=== PATIENT | female | born 1985 | race Two or more races ===

== ENCOUNTER 2024-10-30 06:40 | Inpatient (IN) | payer OTHER ==
[2024-10-30 07:48] VITALS: RESP 18; BMI 30.4
[2024-10-30] MEDS ORDERED: morphine SULFATE/PF 1 MG/2 ML (2cc Syringe - QUVA) ONE (07:53)
[2024-10-30] MEDS ORDERED: FENTANYL CITRATE/PF 50 MCG/ML VIAL ONE (07:54)
[2024-10-30] MEDS ORDERED: MIDAZOLAM HCL 2 MG/2 ML SINGLE DOSE VIAL ONE (09:14)
[2024-10-30] MEDS ORDERED: ONDANSETRON 4 MG/2 ML VIAL IVPB PRN (09:55)
[2024-10-30] MEDS: OXYTOCIN 20 UNITS in 0.9% NS 20 UNIT/1,000 ML INFUS.BAG IV SCH (10:00)
[2024-10-30] MEDS ORDERED: OXYTOCIN 20 UNITS in 0.9% NS 20 UNIT/1,000 ML INFUS.BAG IV ONE (10:01)
[2024-10-30] MEDS ORDERED: ACETAMINOPHEN INJECTION 100 ML ONE (10:52)
[2024-10-30] MEDS: ACETAMINOPHEN 1000 MG/100 ML BAG IVPB SCH (10:56)
[2024-10-30] MEDS ORDERED: IBUPROFEN 800 MG/8 ML IJ IVPB ONE (11:30)
[2024-10-30] MEDS: IBUPROFEN (CALDOLOR) 800 MG/200 ML PREMIX BAGS IVPB SCH (11:34)
[2024-10-30] MEDS: HYDROmorphone HCL CARPU-JECT 2 MG/1 ML DISP.SYRIN IVPB ONE (14:07)
[2024-10-30] MEDS ORDERED: diphenhydrAMINE HCL 50 MG CAPSULE PO ONE (20:30)
[2024-10-30] MEDS ORDERED: diphenhydrAMINE HCL 25 MG CAPSULE (FP) PO PRN ×2 (20:39→20:46)
[2024-10-30] MEDS ORDERED: ALBUTEROL SO4 HFA INHALER IH PRN (21:15)
[2024-10-30] MEDS: SENNOSIDES/DOCUSATE COMBO (SENNA PLUS) TABLET (UD) PO SCH (22:00)
[2024-10-31] MEDS: diphenhydrAMINE HCL 25 MG CAPSULE (FP) PO ONE (02:08)
[2024-10-31 07:42] LABS: ABSOLUTE IMMATURE GRANULOCYTES 0.02 x10^3/uL (0.0-0.031); BASOPHILS # 0.03 x10^3/uL (0.01-0.08); EOSINOPHIL % 2.2 % (0.7-5.8); EOSINOPHILS # 0.19 x10^3/uL (0.04-0.36); HEMATOCRIT 28.1 % (34.1-44.9); HEMOGLOBIN 8.8 g/dL (11.2-15.7); MCHC 31.3 g/dl (32.2-35.5); MEAN CELL VOLUME 90.4 fl (79.4-94.8); MEAN PLT VOLUME 10.8 fl (9.4-12.3); MONOCYTE # 0.61 x10^3/uL (0.24-0.86); PLATELET COUNT 149 x10^3/uL (182-369); RDW 15.3 % (12.1-16.8)
[2024-10-31] MEDS: SIMETHICONE 80 MG TAB.CHEW (FP) PO PRN (08:41)
[2024-10-31] MEDS: IBUPROFEN 600 MG TABLET (FP) PO PRN (08:41)
[2024-10-31] MEDS ORDERED: BISACODYL 10 MG SUPP.RECT RC PRN (09:55)
[2024-10-31] MEDS ORDERED: ACETAMINOPHEN 325 MG TABLET (FP) PO PRN (10:00)
[2024-10-31] MEDS: ACETAMINOPHEN 500 MG TABLET (FP) PO PRN (13:01)
[2024-10-31] MEDS: FERROUS SO4 325 MG TABLET (FP) PO SCH (21:29)
[2024-11-01] MEDS: oxyCODONE HCL 5 MG TABLET PO PRN ×2 (01:49→14:00)
[2024-11-01] MEDS: IBUPROFEN 600 MG TABLET (FP) PO SCH (11:21)
[2024-11-01] MEDS: ACETAMINOPHEN 500 MG TABLET (FP) PO SCH (12:49)
[2024-11-02] MEDS: oxyCODONE HCL 5 MG TABLET PO PRN (03:02)
[2024-11-02 08:14] VITALS: BP 99/70; PULSE 80; TEMP 98
== END 2024-11-02 11:35 | disposition home or self-care (01) | DRG 540 ==
LOC: JLDR 06:40 → J3W 12:10
PROVIDERS: ADMIT Specialist; ATTEND Specialist
PROC: 10D00Z1 Extraction of Products of Conception, Low, Open Approach (ICD-10-PCS; principal; 2024-10-30)
PROC: 0DNW0ZZ Release Peritoneum, Open Approach (ICD-10-PCS; 2024-10-30)
DX: O34.211 Maternal care for low transverse scar from previous cesarean delivery (principal); Z3A.39 39 weeks gestation of pregnancy; Z37.0 Single live birth; O99.02 Anemia complicating childbirth; D64.9 Anemia, unspecified; O99.892 Other specified diseases and conditions complicating childbirth; N73.6 Female pelvic peritoneal adhesions (postinfective)
CPT/HCPCS: 36415; 59025; 59409; 80048; 85025; 85610; 85730; 86780; 86850; 86900; 86901; 87389; 88307-TC; 94010; J0131